=== PATIENT | female | born 1975 | race Two or more races ===

== ENCOUNTER 2017-04-02 08:24 | Outpatient (CLI) | payer OTHER ==
[~2017-04-02 08:24] MED LIST: ADVAIR 100-501 EACH IH; BUSPIRONE HCL15 MG PO; HYOSCYAMINE0.125 M1 SL; LEVSIN0.125 MG PO; ONDANSETRON HCL4 MG PO; OXYC1TAB9 PO; PROTONIX20 MG PO; PROTONIX40 MG PO; PROVENTIL S1 ML/5 MG IH; WELLBUTRIN SR150 MG PO
== END 2017-04-02 08:33 | disposition home or self-care (01) ==
LOC: TOM 08:24
DX: R10.84 Generalized abdominal pain (principal); R19.4 Change in bowel habit; K59.01 Slow transit constipation; K58.9 Irritable bowel syndrome, unspecified; K66.0 Peritoneal adhesions (postprocedural) (postinfection); N73.6 Female pelvic peritoneal adhesions (postinfective)

== ENCOUNTER → 2017-04-13 | Day surgery (SDC) | payer OTHER | END | disposition home or self-care (01) | LOC: ADM 04-02 08:00 → AMB-ENDOS 06:34 → ADM 05-03 12:00 | DX: K57.30 Diverticulosis of large intestine without perforation or abscess without bleeding (principal) ==